=== PATIENT | female | born 1945 | race Caucasian/White ===

== ENCOUNTER → 2016-08-28 | Outpatient (CLI) | payer OTHER ==
--- NOTE | 2016-08-28 14:03 | CT ---
CT Coronary Calcium Score Clinical History: 71-year-old female with hypercholesterolemia Technique: Prospectively gated helical noncontrast images were obtained through the cardiac portion o f the chest. Images are reviewed at a variety of window/level settings. Dose reduction techniques wer e utilized. Findings: The calcium score according to the Agatston-Janowitz criteria is 10 which is consistent wit h the 30th percentile for age. Left Main:0 Left Anterior Descendin Left Circumflex: 3 Right Coronary: 6 Posterior Descendin Noncardiac evaluation: There are no noncalcified pulmonary nodules. A calcified granuloma is present in the right lower lobe posteriorly. Impression: A calcium score of 10 places the patient in the 30th percentile rank for age. Recommendations 1. CT Coronary Calcium Score [10]. Consider repeat examination in 2-5 years. 2. Recommend daily aspirin therapy and [ secondary>> NCEP prevention guidelines>].
== END ==
LOC: FIMAGING 10:27
PROVIDERS: ATTEND Family Medicine Geriatric Medicine
DX: Z13.6 Encounter for screening for cardiovascular disorders (principal); E78.00 Pure hypercholesterolemia, unspecified

== ENCOUNTER → 2018-12-27 | Outpatient (CLI) | payer OTHER | LOC: FCPNEURO 20:00 | PROVIDERS: ATTEND Psychiatry & Neurology Sleep Medicine | DX: G47.33 Obstructive sleep apnea (adult) (pediatric) (principal); G47.61 Periodic limb movement disorder; G47.39 Other sleep apnea; G47.37 Central sleep apnea in conditions classified elsewhere; J96.11 Chronic respiratory failure with hypoxia ==